=== PATIENT | male | born 1985 | race African-American/Black ===

== ENCOUNTER 2017-11-09 17:08 | Emergency (ER) | payer OTHER ==
[~2017-11-09] VITALS: Ht 180.3 cm; Wt 92.8 kg
[2017-11-09 17:14] VITALS: TEMP 37.3; Ht 180.3 cm; Wt 92.8 kg
[2017-11-09] MEDS ORDERED: VST25HP PO (17:59)
[2017-11-09] MEDS ORDERED: PARO1TAB27 PO (17:59)
[2017-11-09] MEDS ORDERED: NAPR-1169 PO (17:59)
[2017-11-09] MEDS ORDERED: ZNTT/150 PO (17:59)
[2017-11-09 18:32] LABS: BASO % 0.2 %; BASO ABS # 0.02 K/uL (0-0.2); EOS % 0.2 %; EOS ABS # 0.02 K/uL (0-0.5); HEMATOCRIT 39.3 % (42-52); HEMOGLOBIN 13.8 g/dL (14.0-18.0); IG# 0.02 K/uL (0.00-0.02); LYMPH ABS # 1.74 K/uL (1.2-3.4); MEAN CELL VOLUME 87.7 fL (80-100); MEAN CORPUSCULAR HEMOGLOBIN 30.8 pg (25-34); MEAN CORPUSCULAR HGB CONC 35.1 g/dl (32-36); MEAN PLATELET VOLUME 9.2 fL (7.4-10.4); MONO ABS # 0.55 K/uL (0.11-0.59); NEUT % 74.4 %; NEUT ABS # 6.83 K/uL (1.4-6.5); PLATELET COUNT 216 K/uL (130-400); RED CELL DISTRIBUTION WIDTH CV 12.7 % (11.5-14.5); RED CELL DISTRIBUTION WIDTH SD 40.8 fL (36.4-46.3); WHITE BLOOD COUNT 9.18 K/uL (4.8-10.8)
[2017-11-09 18:40] LABS: INR 1.1 (0.9-1.1); PTT PATIENT 27.1 SECONDS (21.0-31.0)
[2017-11-09 18:49] LABS: ALBUMIN 4.3 gm/dl (3.4-5.0); ALT/SGPT 19 U/L (12-78); BLOOD UREA NITROGEN 15 mg/dl (7-18); CARBON DIOXIDE 24 mmol/L (21-32); CREATININE 0.89 mg/dl (0.60-1.40); GLUCOSE 97 mg/dl (70-99); POTASSIUM 3.8 mmol/L (3.5-5.1); SODIUM 138 mmol/L (136-145)
[2017-11-09 18:52] LABS: ALKALINE PHOSPHATASE 80 U/L (45-117); AST/SGOT 13 U/L (15-37); TOTAL PROTEIN 7.3 gm/dl (6.4-8.2)
[2017-11-09 22:22] VITALS: BP 131/85; PULSE 60; O2SAT 99
--- NOTE | 2017-11-09 22:56 | EMERGENCY ROOM VISIT NOTE ---
History Report prepared by Suzanne: Neeraj Alvarez Under the Supervision of: Dr. Teodoro Ruelas M.D. First contact with patient: 17:23 Chief Complaint: OVERDOSE (INTENTIONAL) Stated Complaint: OVERDOSE, History of Present Illness The patient is a 32 year old male who presents to the Emergency Room with complaints of an episode of intentional overdose occurring an hour and a half ago at approximately 4 to 4:30 PM. The patient is currently a prisoner at [facility]. He states that he intentionally took a handful of different pills about an hour and a half ago. He notes that he is unsure what the pills were, but that they were medically prescribed tablets. He received them from different inmates. Per Dr. Su from [facility], the patient took Zantac, Naprosyn, Paxil, and Vasopril. The patient reports that his vision started to become blurry a few minutes ago and also complains of mild lightheadedness. He denies any nausea, headache, and pain. He states that he has a history of depression but has not previously tried to intentionally harm himself. He does not want to talk about why he try to kill himself. He says he'll talk to the psychiatrist about that. Source of History: patient Onset: an hour and a half ago Position: other (global) Quality: other (intentional overdose) Timing: other (an episode) Associated Symptoms: No headache, No nausea Note: The patient complains of blurry vision and mild lightheadedness. He denies any pain. Review of Systems See HPI for pertinent positives & negatives. A total of 10 systems reviewed and were otherwise negative. Past Medical & Surgical Medical Problems: (1) Depression Family History No pertinent family history stated. Social History Smoking Status: Never Smoker Marital Status: single Housing Status: other (prisoner) Current/Historical Medications Scheduled Hydroxyzine HCl (Hydroxyzine Pamoate), 25 MG PO BID Naproxen (Naprosyn), 500 MG PO BID Paroxetine (Paxil), 20 MG PO HS Ranitidine (Zantac), 150 MG PO BID Allergies Coded Allergies: No Known Allergies (Unverified , 11/09/17) Physical Exam Vital Signs Date Time Temp Pulse Resp B/P (MAP) Pulse Ox O2 Delivery O2 Flow Rate FiO2 11/09/17 22:22 60 16 131/85 99 11/09/17 21:43 59 11/09/17 21:30 62 14 131/76 96 Room Air 11/09/17 20:17 66 16 136/88 97 Room Air 11/09/17 18:34 64 16 120/73 96 Room Air 11/09/17 17:24 82 11/09/17 17:14 37.3 83 16 138/86 96 Room Air Physical Exam Constitutional: Vital signs reviewed. Eyes: Pupils are equal round reactive to light. Conjunctiva are noninjected. ENT: Pharynx is clear without erythema or exudate. Mucous membranes are moist. Neck supple without meningeal signs. Respiratory: Clear to auscultation bilaterally. Breath sounds are equal bilaterally. Cardiovascular: Regular rate and rhythm. No rubs or gallops. GI: Soft, nondistended and nontender. Bowel sounds are present. Musculoskeletal: No peripheral edema. No lower extremity tenderness. Integumentary: No cyanosis. Neurological: The patient is awake and alert. Cranial nerves II-XII are intact. Motor is 5 out of 5 all extremities. Sensation is intact to light touch all extremities. Normal speech. Psychiatric: Flat affect. Medical Decision & Procedures Laboratory Results 11/09/17 18:03 Red Blood Count 4.48, Mean Corpuscular Volume 87.7, Mean Corpuscular Hemoglobin 30.8, Mean Corpuscular Hemoglobin Concent 35.1, Mean Platelet Volume 9.2, Neutrophils (%) (Auto) 74.4, Lymphocytes (%) (Auto) 19.0, Monocytes (%) (Auto) 6.0, Eosinophils (%) (Auto) 0.2, Basophils (%) (Auto) 0.2, Neutrophils # (Auto) 6.83, Lymphocytes # (Auto) 1.74, Monocytes # (Auto) 0.55, Eosinophils # (Auto) 0.02, Basophils # (Auto) 0.02 11/09/17 18:03 Test 11/09/17 17:52 11/09/17 18:03 11/09/17 18:06 11/09/17 22:20 Urine Opiates Screen NEG (NEG) Urine Methadone, Qualitative NEG (NEG) Urine Barbiturates NEG (NEG) Urine Phencyclidine (PCP) Level NEG (NEG) Ur Amphetamine/Methamphetamine NEG (NEG) MDMA (Ecstasy) Screen NEG (NEG) Urine Benzodiazepines Screen NEG (NEG) Urine Cocaine Metabolite NEG (NEG) Urine Marijuana (THC) NEG (NEG) White Blood Count 9.18 K/uL (4.8-10.8) Red Blood Count 4.48 M/uL (4.7-6.1) Hemoglobin 13.8 g/dL (14.0-18.0) Hematocrit 39.3 % (42-52) Mean Corpuscular Volume 87.7 fL (80-100) Mean Corpuscular Hemoglobin 30.8 pg (25-34) Mean Corpuscular Hemoglobin Concent 35.1 g/dl (32-36) Platelet Count 216 K/uL (130-400) Mean Platelet Volume 9.2 fL (7.4-10.4) Neutrophils (%) (Auto) 74.4 % Lymphocytes (%) (Auto) 19.0 % Monocytes (%) (Auto) 6.0 % Eosinophils (%) (Auto) 0.2 % Basophils (%) (Auto) 0.2 % Neutrophils # (Auto) 6.83 K/uL (1.4-6.5) Lymphocytes # (Auto) 1.74 K/uL (1.2-3.4) Monocytes # (Auto) 0.55 K/uL (0.11-0.59) Eosinophils # (Auto) 0.02 K/uL (0-0.5) Basophils # (Auto) 0.02 K/uL (0-0.2) RDW Standard Deviation 40.8 fL (36.4-46.3) RDW Coefficient of Variation 12.7 % (11.5-14.5) Immature Granulocyte % (Auto) 0.2 % Immature Granulocyte # (Auto) 0.02 K/uL (0.00-0.02) Prothrombin Time 11.2 SECONDS (9.0-12.0) Prothromb Time International Ratio 1.1 (0.9-1.1) Activated Partial Thromboplast Time 27.1 SECONDS (21.0-31.0) Partial Thromboplastin Ratio 1.0 Anion Gap 10.0 mmol/L (3-11) Est Creatinine Clear Calc Drug Dose 140.0 ml/min Estimated GFR () 132.1 Estimated GFR (Non- 113.9 BUN/Creatinine Ratio 16.6 (10-20) Calcium Level 9.0 mg/dl (8.5-10.1) Total Bilirubin 0.5 mg/dl (0.2-1) Direct Bilirubin < 0.1 mg/dl (0-0.2) Aspartate Amino Transf (AST/SGOT) 13 U/L (15-37) Alanine Aminotransferase (ALT/SGPT) 19 U/L (12-78) Alkaline Phosphatase 80 U/L (45-117) Total Protein 7.3 gm/dl (6.4-8.2) Albumin 4.3 gm/dl (3.4-5.0) Salicylates Level < 1.7 mg/dl (2.8-20) Acetaminophen Level < 2 ug/ml (10-30) Ethyl Alcohol mg/dL < 3.0 mg/dl (0-3) Laboratory results as reviewed by me. ECG Indication: other (overdose) Rate (beats per minute): 76 Rhythm: normal sinus Findings: other (no QT prolongation, no heart block, no widening of QRS) ED Course 1724: The patient was evaluated in room C8. A complete history and physical exam was performed. 1903: I reevaluated and updated the patient. The blurring of his vision is gone and he is not showing any symptoms. 2155: Upon reevaluation, the patient appeared to have improvement of his symptoms. I discussed tonight's findings with him. He verbalized agreement of the treatment plan. The patient was discharged back to [facility]. Medical Decision This is a 32-year-old male who presents after an intentional overdose. I did perform a limited focused review of portions of the patient's old chart on the electronic medical record. The patient has had no prior visits to this hospital. I did evaluate the patient as noted above. I did obtain history from the patient as well as to the nurse. They had spoken to the penitentiary doctor who stated that he took various medications as described above. He states he developed some lightheadedness and some blurry vision when arriving here but otherwise has no complaints. IV access was established. The patient was placed on a continuous animal pathology teacher. I did order and personally review the patient's 12-lead EKG as described above. I did order and review the patient's blood work as noted in the electronic medical record. I did observe the patient here. He was observed 6 hours postingestion. I did reassess him several times. He has complete resolution of his symptoms. He no longer has blurry vision. He denies lightheadedness. He has no complaints. He was therefore discharged back to the [facility] for further care and psychiatric evaluation. Blood Pressure Screening Patient's blood pressure: Elevated blood pressure Blood pressure disposition: Referred to PCP Impression Primary Impression: Intentional drug overdose Additional Impression: Mood disorder Scribe Attestation The scribe's documentation has been prepared under my direct and personally reviewed by me in its entirety. I confirm that the note above accurately reflects all work, treatment, procedures, and medical decision making performed by me. Departure Information Dispostion Other (Discharged to [facility]) Forms HOME CARE DOCUMENTATION FORM, IMPORTANT VISIT INFORMATION, WORK / SCHOOL INSTRUCTIONS Patient Instructions My [facility] Additional Instructions You have been examined and treated today on an emergency basis only. This is not a substitute for, or an effort to provide, complete comprehensive medical care. It is impossible to recognize and treat all injuries or illnesses in a single emergency department visit. It is therefore important that you follow up closely with the penitentiary physician and psychiatrist. Return for worsening symptoms or if you develop chest pain, abdominal pain, rectal bleeding, problems urinating, vomiting, or any other concerning symptoms. Problem Qualifiers Primary Impression: Intentional drug overdose Encounter type: initial encounter Qualified Codes: T50.902A - Poisoning by unspecified drugs, medicaments and biological substances, intentional self-harm , initial encounter
== END 2017-11-09 22:20 | disposition other institution (70) ==
LOC: C.EDC 17:13
DX: T50.902A Poisoning by unspecified drugs, medicaments and biological substances, intentional self-harm, initial encounter (principal); F39 Unspecified mood [affective] disorder; Z79.899 Other long term (current) drug therapy